=== PATIENT | female | born 1995 | race African-American/Black ===

== ENCOUNTER 2019-10-24 01:46 | Emergency (ER) | payer MEDICAID ==
[~2019-10-24] VITALS: Ht 160 cm; Wt 74.8 kg
[~2019-10-24 01:46] MED LIST: ALBUPOW26
[2019-10-24 06:01] VITALS: BP 113/73
== END 2019-10-24 06:35 | disposition home or self-care (01) ==
LOC: ER 01:49
DX: S16.1XXA Strain of muscle, fascia and tendon at neck level, initial encounter (principal); S29.012A Strain of muscle and tendon of back wall of thorax, initial encounter; S00.03XA Contusion of scalp, initial encounter; J45.909 Unspecified asthma, uncomplicated; V43.62XA Car passenger injured in collision with other type car in traffic accident, initial encounter; Y93.89 Activity, other specified; Y99.8 Other external cause status; Y92.410 Unspecified street and highway as the place of occurrence of the external cause
CPT/HCPCS: 70450; 71046; 72125; 74176; 81025